=== PATIENT | female | born 1965 | race Hispanic/Latino ===

== ENCOUNTER 2025-02-14 18:20 | Emergency (ER) | payer OTHER ==
[~2025-02-14 18:20] MED LIST: LEVOTHYROXINE50 MCG PO; LISINOPRIL10 MG PO; METFORMIN HCL500 MG PO; PRAVASTATIN SOD40 MG PO
== END 2025-02-14 18:28 | disposition short-term general hospital (02) ==
LOC: ER 18:28
DX: I10 Essential (primary) hypertension (principal)

== ENCOUNTER → 2025-04-04 | Day surgery (SDC) | payer BC, OTHER ==
[~2025-04-04] MED LIST changes: +D3-5000125 MCG; +FENTANYL CITRATE/PF 100MCG/2 ML INJ ONE; +HYOSCYAMINE SULFATE 0.5 MG/ML INJ ONE; +LIDOCAINE HCL 2% LOCAL INJ 5 ML SDV VIAL INJ ONE; +METOCLOPRAMIDE HCL 10 MG/2ML VIAL ONE; +PROPOFOL IV EMULSION 10 MG/ML 20 ML VIAL ONE; +PROPOFOL IV EMULSION 50 ML IV ONE; +SLOW-MAG64 MG PO
[2025-04-04] MEDS: LACTATED RINGER'S 1,000 ML ONE (05:41)
[2025-04-04 08:11] VITALS: TEMP 97.6
[2025-04-04 08:40] VITALS: BP 127/84; PULSE 84; RESP 16; O2SAT 99
== END | disposition home or self-care (01) ==
LOC: OR 05:17
PROVIDERS: ATTEND Internal Medicine Gastroenterology
DX: Z12.11 Encounter for screening for malignant neoplasm of colon (principal); D12.0 Benign neoplasm of cecum; D12.3 Benign neoplasm of transverse colon; K64.8 Other hemorrhoids; K29.50 Unspecified chronic gastritis without bleeding; K21.00 Gastro-esophageal reflux disease with esophagitis, without bleeding; K22.2 Esophageal obstruction; I10 Essential (primary) hypertension; E11.9 Type 2 diabetes mellitus without complications; E03.9 Hypothyroidism, unspecified; Z79.890 Hormone replacement therapy; Z79.84 Long term (current) use of oral hypoglycemic drugs; Z80.0 Family history of malignant neoplasm of digestive organs
CPT/HCPCS: 43239; 43450; 45385; J1980; J2003; J2470; J2704 ×2; J2765; J3010; J7121; 45378